=== PATIENT | male | born 1990 | race Caucasian/White ===

== ENCOUNTER 2023-09-05 13:11 | Emergency (ER) | payer OTHER, SELFPAY ==
[2023-09-05 13:18] VITALS: BP 126/85; PULSE 66; TEMP 36.7; O2SAT 99; BMI 21.6
--- NOTE | 2023-09-05 13:54 | ED_ITS ---
HPI - Ear Problem General Chief complaint: Ear Stated complaint: EAR PAIN Time Seen by Provider: 09/05/23 13:18 Source: patient Mode of arrival: walk-in History of Present Illness HPI Narrative: Patient coming to the ER with almost 2 days history of left ear pain, the patient denies any swimming recently but he did mention having otitis externa has history. No hearing difficulty no trauma Related Data Previous Rx's ?Medication ?Instructions ?Recorded ciprofloxacin HCl 0.2 % ear drops 5 drp otic (ear) BID 7 days #14 ea 09/05/23 in a dropperette Allergies Allergy/AdvReac Type Severity Reaction Status Date / Time No Known Drug Allergies Allergy Verified 09/05/23 13:21 Review of Systems ROS Status of ROS 10 or more systems reviewed and unremark able except as noted in history and below Exam Narrative Exam Narrative: Nurses notes and vital signs reviewed and patient is not hypoxic. General: Well-appearing and in no apparent distress. Skin: Warm, dry, no pallor noted. No rash. Head: Normocephalic, atraumatic. Neck: Supple, non-tender. Eye: Pupils are equal, round and EOMI. No scleral icterus. Ears, Nose, Mouth, and Throat: The patient tried a examination was benign left ear examination showed impacted earwax Respiratory: No accessory muscle use or respiratory distress. Lungs are clear to auscultation, no wheezing, rales or rhonchi Chest Wall: no tenderness Back: No midline thoracic or lumbar vertebral tenderness. No CVA tenderness Musculoskeletal: normal ROM, no calf or popliteal tenderness, no lower extremi ty edema/swelling GI: Abdomen is soft, non-distended. Normal bowel sounds. No masses appreciated. No tenderness to palpation. No rebound, guarding, or rigidity noted. Neurological: A&O x4. No cranial nerve dysfunction observed. No truncal ataxia. Moves all extremities. Sensation intact. Psychiatric: Cooperative and interactive. Normal mood and affect. Constitutional Vital Signs, click to edit/add: Last Vital Signs Temp 98.0 F 09/05/23 13:18 Pulse 66 09/05/23 13:18 Resp 16 09/05/23 13:18 BP 126/85 09/05/23 13:18 Pulse Ox 99 09/05/23 13:18 O2 Del Method Room Air 09/05/23 13:18 Course Vital Signs Vital signs: Vital Signs Temperature 98.0 F 09/05/23 13:18 Pulse Rate 66 09/05/23 13:18 Respiratory Rate 16 09/05/23 13:18 Blood Pressure 126/85 09/05/23 13:18 Pulse Oximetry 99 09/05/23 13:18 Oxygen Delivery Method Room Air 09/05/23 13:18 Temperature 98.0 F 09/05/23 13:18 Pulse Rate 66 09/05/23 13:18 Respiratory Rate 16 09/05/23 13:18 Blood Pressure 126/85 09/05/23 13:18 Pulse Oximetry 99 09/05/23 13:18 Oxygen Delivery Method Room Air 09/05/23 13:18 Medical Decision Making MDM Narrative Medical decision making narrative: The patient coming to the ER with a impacted left earwax after cleaning and irrigation in the ER , evaluation shows erythematous external auditory canal The tympanic membrane is intact and the patient can hear better The patient was treated with ciprofloxacin eardrop twice daily for the next 7 days and instructed to keep the ear clean and dry The patient is to follow up with primary care physician in next 2-3 days or to return to the emergency department should any of the signs or symptoms worsen or new symptoms develop. The patient agrees with the following Diagnosis and Treatment plan and the patient will be discharged home. Discharge Plan Discharge Stand Alone Forms: Portal Instructions Chief Complaint: Ear Clinical Impression: Otitis externa Qualifiers: Otitis externa type: diffuse Chronicity: acute Laterality: left Qualified Code(s): H60.312 - Diffuse otitis externa, left ear Excess ear wax Qualifiers: Laterality: left Qualified Code(s): H61.22 - Impacted cerumen, left ear Patient Disposition: Home, Self-Care Time of Disposition Decision: 13:52 Condition: Good Prescriptions / Home Meds: New ciprofloxacin HCl 0.2 % dropperette 5 drp otic (ear) BID 7 Days Qty: 14 0RF Rx Instructions: please apply to the left ear you can replace with ophthalmic 0.3 % instead in case not available Print Language: Turkish Instructions: [facility] (ED) Referrals: RODO COLLINS [Primary Care Provider] - 1 week Discharge Date/Time: 09/05/23 14:11
== END 2023-09-05 14:11 | disposition home or self-care (01) ==
PROVIDERS: Emergency Provider Emergency Medicine; PCP Nurse Practitioner Family
DX: H60.312 Diffuse otitis externa, left ear (principal); H61.22 Impacted cerumen, left ear
CPT/HCPCS: 69209; 99283

== ENCOUNTER 2024-01-25 15:17 | Emergency (ER) | payer MEDICARE, MEDICAID, SELFPAY ==
[2024-01-25 15:20] VITALS: BP 132/90; PULSE 84; TEMP 37.1; O2SAT 100; BMI 21.6
--- OUTSIDE RECORDS SUMMARY | 2024-01-25 15:26 | XMS_ITS | CCD ---
Author Organization [facility] [employer] ACCOUNTS RECEIVABLE REPRESENTATIVE [facility] Care Team Providers Care Technology Applications Teacher Name Role Phone ANKUR MCCARTNEY Primary Care Unavailable MARIAELENA TORRES Admitting Unavailable MARIAELENA TORRES Attending Unavailable LINDA ZARATE Consulting Unavailable Problems Problem Classification Problem Date Documented Da te Episodic/Chronic Allergic reactions (4 sources) Dermatitis, unspecified; Translations: [DERMATITIS UNSPECIFIED] Onset: 03-27-2019 Episodic Encounters Encounter Date Encounter Type Care Provider Facility Start: 03-27-2019 End: 03-27-2019 Patient encounter procedure ANKUR MCCARTNEY Facility: Payers Date Payer Category Payer Unknown [id number] 1958 Unknown [id number] Summary Purpose Family History No Family History Records Found Advance Directives No Advanced Directives Records Found Additional Source Comments (unrecognized sect ion and content) No Status Records Found INFORMATION SOURCE (unrecogn ized section and content) DATE CREATED AUTHOR 03/30/[address] [facility] FOR RECORDS PERTAINING TO PATIENTS WHO ARE OR HAVE BEEN ENROLLED IN A CHEMICAL DEPENDENCY/SUBSTANCEABUSE PROGRAM, SOME INFORMATION MAY BE OMITTED. This clinical summary was aggregated from multiple sources. Caution should be exercised in using it in the provision of clinical care. This summary normalizes information from multiple sources, and as a consequence, information in this document may materially change the coding, format and clinical context of patient data. In addition, data may be omitted in some cases. CLINICAL DECISIONS SHOULD BE BASED ON THE PRIMARY CLINICAL RECORDS. [facility] [employer] provides no warranty or guarantee of the accuracy or completeness of information in this document.
--- NOTE | 2024-01-25 15:38 | ED.EAR1 ---
HPI - Ear Problem General Chief complaint: Ear Stated complaint: Earache Time Seen by Provider: 01/25/24 15:27 Source: patient Mode of arrival: walk-in Limitations: no limitations History of Present Illness HPI Narrative: Patient is a 33-year-old male well-known to this emergency department who presents for a 2-day history of left ear pain. No drainage from the left ear. He has been seen in this emergency department previously for the symptoms and is known to have previous cerumen impactions. Mother at bedside states that they are going to call his doctor to get a referral for an ear nose and throat physician. He has had 3 ear infections this year. No fevers, cough or congestion. Related Data Previous Rx's ?Medication ?Instructions ?Recorded amoxicillin 500 mg capsule 500 mg PO TID 10 days #30 caps 01/25/24 Allergies Allergy/AdvReac Type Severity Reaction Status Date / Time No Known Drug Allergies Allergy Verified 09/05/23 13:21 Review of Systems ROS Constitutional Denies: fever or chills Ears, nose, mouth, and throat Reports: ear pain and change in hearing; Denies: throat pain, ear discharge or nasal congestion Cardiovascular Denies: chest pain Respiratory Denies: shortness of breath or cough Gastrointestinal Denies: nausea or vomiting Musculoskeletal Denies: back pain or neck pain Integumentary/Breast Denies: rash Neurological Denies: numbness in extremities or weakness in extremities Hematologic/Lymphatic Denies: easy bruising or easy bleeding PFSH [facility] Social History Little interest or pleasure in doing things: not at all Feeling down, depressed, or hopeless: not at all Exam Narrative Exam Narrative: Gen.: Awake, alert, in no distress Head: Normocephalic, atraumatic ENT: Moist mucous membranes, left external canal with abrasion noted, no active bleeding or swelling in the canal. Left TM is not bulging or erythematous but fluid-filled. Right TM is obstructed by cerumen. Respiratory: No respiratory distress Extremities: Moves extremities equally Psych: Normal mood and affect Neuro: No focal neuro deficit Skin: Warm, dry, intact Constitutional Vital Signs, click to edit/add: Last Vital Signs Temp 98.7 F 01/25/24 15:20 Pulse 84 01/25/24 15:20 Resp 18 01/25/24 15:20 BP 132/90 01/25/24 15:20 Pulse Ox 100 01/25/24 15:20 O2 Del Method Room Air 01/25/24 15:20 Course Vital Signs Vital signs: Vital Signs Temperature 98.7 F 01/25/24 15:20 Pulse Rate 84 01/25/24 15:20 Respiratory Rate 18 01/25/24 15:20 Blood Pressure 132/90 01/25/24 15:20 Pulse Oximetry 100 01/25/24 15:20 Oxygen Delivery Method Room Air 01/25/24 15:20 Temperature 98.7 F 01/25/24 15:20 Pulse Rate 84 01/25/24 15:20 Respiratory Rate 18 01/25/24 15:20 Blood Pressure 132/90 01/25/24 15:20 Pulse Oximetry 100 01/25/24 15:20 Oxygen Delivery Method Room Air 01/25/24 15:20 Medical Decision Making MDM Narrative Medical decision making narrative: Exam is consistent with serous otitis of the left ear, abrasion of the left external ear canal and cerumen impaction of the right ear. Patient was given Ciprodex drops for the left ear, Debrox drops for home for the right ear to prevent further cerumen impaction and amoxicillin for coverage of the serous otitis. Follow-up with PCP and return to the ER if symptoms change or worsen SUPERVISED APC VISIT, PHYSICIAN ATTESTATION: Based on the medical record the care appears appropriate. ? Medical Records Medical records reviewed: Yes I reviewed the patient's medical records Discharge Plan Discharge Chief Complaint: Ear Clinical Impression: Acute pain of left ear, Acute serous otitis media of left ear, Abrasion of left ear canal, Impacted cerumen, right ear Patient Disposition: Home, Self-Care Time of Disposition Decision: 15:35 Condition: Good Prescriptions / Home Meds: New amoxicillin 500 mg capsule 500 mg PO TID 10 Days Qty: 30 0RF Print Language: Kyrgyz Instructions: Earache (ED), Ear Abrasion (ED) Additional Instructions: Please use the Ciprodex drops in the LEFT ear: 2 drops in the left ear, 3 times a day, for 5 days Please use the debrox solution in the RIGHT ear for the earwax: 10-15 drops in the right ear, 2-3 times a day and flush with warm water Referrals: RODO COLLINS [Primary Care Provider] - 1 week
[2024-01-25] MEDS: CIPROFLOXACIN HCL/DEXAMETH 0.3%/0.1% OTIC SUSP 150 DROP/7.5 ML BOTTLE OT (15:55)
[2024-01-25] MEDS: CARBAMIDE PEROXIDE 6.5% EAR DROPS 300 DROP/15 ML BOTTLE 10 DROP OT (15:55)
== END 2024-01-25 16:02 | disposition home or self-care (01) ==
PROVIDERS: Emergency Provider Emergency Medicine; PCP Nurse Practitioner Family
DX: H65.02 Acute serous otitis media, left ear (principal); H92.02 Otalgia, left ear; S00.412A Abrasion of left ear, initial encounter; H61.21 Impacted cerumen, right ear; X58.XXXA Exposure to other specified factors, initial encounter
CPT/HCPCS: 99283